=== PATIENT | female | born 1950 | race Caucasian/White ===

== ENCOUNTER → 2016-11-04 | Outpatient (CLI) | payer MEDICARE, OTHER ==
[~2016-11-04] MED LIST: AMOX1TAB10 PO; HYDR-906 PO
--- NOTE | 2016-11-04 15:28 | RADRPT ---
PROCEDURE: XR bilateral wrists. CLINICAL INDICATION: Wrist pain TECHNIQUE: AP and lateral views of each wrist are available for review. COMPARISON: No prior studies are available for comparison. FINDINGS: The osseous structures are normal in mineralization, architecture and alignment. No fracture or oss eous lesion is identified. The joints are unremarkable. No erosions are identified. The soft tissue s are unremarkable. IMPRESSION: Unremarkable examination. RPTAT: [facility] .Lizandro Hernandez MD, MD Date Time Electronically viewed and signed by .Lizandro Hernandez MD, on 11/04/2016 15:27 .B/
--- NOTE | 2016-11-04 15:44 | RADRPT ---
PROCEDURE: XR bilateral hands. CLINICAL INDICATION: Hand pain TECHNIQUE: AP and lateral views of each hand are available for review. COMPARISON: No prior studies are available for comparison. FINDINGS: There is moderate osteoarthrosis involving the right fourth PIP joint (narrowing/subchondral scleros is and osteophytosis) The osseous structures are otherwise normal in mineralization, architecture and alignment. No fract ure or osseous lesion is identified. The joints are otherwise unremarkable. No joint erosions are i dentified The soft tissues are unremarkable. IMPRESSION: Moderate osteoarthrosis involving the right fourth PIP joint Otherwise unremarkable examination. No erosions identified RPTAT: [facility] .Lizandro Hernandez MD, MD Date Time Electronically viewed and signed by .Lizandro Hernandez MD, on 11/04/2016 15:43 .B/
== END | disposition home or self-care (01) ==
LOC: RAD 12:18
PROVIDERS: ATTEND Emergency Medicine
DX: M06.89 Other specified rheumatoid arthritis, multiple sites (principal)
CPT/HCPCS: 73110; 73130